=== PATIENT | male | born 1965 | race Caucasian/White ===

== ENCOUNTER → 2016-11-08 | Outpatient (CLI) | payer OTHER ==
[~2016-11-08] MED LIST: ALBUAER2 INH; ATV/1 PO; B-CO1CAP5 PO; CEPH500C2 PO; CHOL100010 PO; CHOL1TAB76 PO; FLUO0.0566 TOP; LEVO100T PO; LEVO88TA22 PO; LOSA1TAB38 PO; OMEG12006 PO; PLMIN90 PO; VNTHFA/IN INH; ZOLP5TAB6 PO; [UNRECOGNIZED DRUG - CODE] PO
[2016-11-08 10:31] LABS: BASO % 1.1 %; BASO ABS # 0.05 K/uL (0-0.2); COMPLETE YES; EOS % 5.5 %; HEMATOCRIT 43.3 % (42-52); IG% 0.2 %; LYMPH % 20.9 %; LYMPH ABS # 0.98 K/uL (1.2-3.4); MEAN CELL VOLUME 87.8 fL (80-100); MEAN CORPUSCULAR HEMOGLOBIN 30.2 pg (25-34); MEAN CORPUSCULAR HGB CONC 34.4 g/dl (32-36); MEAN PLATELET VOLUME 10.8 fL (7.4-10.4); MONO % 6.8 %; NEUT % 65.5 %; PLATELET COUNT 147 K/uL (130-400); RED BLOOD COUNT 4.93 M/uL (4.7-6.1)
[2016-11-08 10:53] LABS: ESTIMATED AVERAGE GLUCOSE 146 mg/dl; HA1C FLAG Normal (Normal)
[2016-11-08 10:54] LABS: ALT/SGPT 41 U/L (12-78); AST/SGOT 24 U/L (15-37); BLOOD UREA NITROGEN 16 mg/dl (7-18); BUN/CREATININE RATIO 14.5 (10-20); CALCIUM 8.2 mg/dl (8.5-10.1); CARBON DIOXIDE 28 mmol/L (21-32); CHLORIDE 106 mmol/L (98-107); GLUCOSE 139 mg/dl (70-99); POTASSIUM 4.2 mmol/L (3.5-5.1); SODIUM 142 mmol/L (136-145)
[2016-11-08 11:06] LABS: ALKALINE PHOSPHATASE 41 U/L (45-117); CHOLESTEROL 156 mg/dl (0-200); CHOLESTEROL/HDL RATIO 4.2; HDL CHOLESTEROL 37 mg/dl; LDL CHOLESTEROL CALCULATED 95 mg/dl; TRIGLYCERIDES 118 mg/dl (0-150); VERY LOW DENSITY LIPOPROT CALC 24 mg/dl
== END | disposition home or self-care (01) ==
LOC: C.LAB 09:11
PROVIDERS: ATTEND Internal Medicine
DX: F43.20 Adjustment disorder, unspecified (principal)

== ENCOUNTER → 2017-01-18 | Outpatient (CLI) | payer OTHER ==
[~2017-01-18] MED LIST changes: -CEPH500C2 PO; -CHOL1TAB76 PO; -FLUO0.0566 TOP; -LEVO100T PO; -VNTHFA/IN INH
[2017-01-18 13:38] LABS: ESTIMATED AVERAGE GLUCOSE 128 mg/dl; HA1C FLAG Normal (Normal)
== END | disposition home or self-care (01) ==
LOC: C.LAB 08:31
PROVIDERS: ATTEND Internal Medicine
DX: Z00.00 Encounter for general adult medical examination without abnormal findings (principal); I10 Essential (primary) hypertension; E03.9 Hypothyroidism, unspecified

== ENCOUNTER 2017-04-08 10:09 | Emergency (ER) | payer OTHER ==
[~2017-04-08] VITALS: Ht 182.9 cm; Wt 129.4 kg
[2017-04-08 10:16] VITALS: TEMP 37; O2SAT 97; Ht 182.9 cm; Wt 129.4 kg
--- NOTE | 2017-04-08 10:59 | DIAGNOSTIC IMAGING REPORT ---
RIGHT ANKLE 3 VIEWS HISTORY: Right ankle pain. COMPARISON: None. FINDINGS: No acute fracture or dislocation. Lateral soft tissue swelling. Small posterior calcaneal spur. Probable old, healed distal fibular fracture. No radiopaque foreign bodies. IMPRESSION: No acute fracture or dislocation within the right ankle. Electronically signed by: Sg Brooks M.D. 04/08/2017 10:58 AM Dictated Date/Time: 04/08/2017 10:57 AM
[2017-04-08] MEDS ORDERED: FLUO0.0566 TOP (11:01)
[2017-04-08] MEDS ORDERED: LEVO100T PO (11:01)
[2017-04-08] MEDS ORDERED: VNTHFA/IN INH (11:01)
[2017-04-08] MEDS ORDERED: CHOL1TAB76 PO (11:01)
[2017-04-08 12:02] VITALS: BP 118/82; PULSE 54
[2017-04-08] MEDS ORDERED: CEPH500C2 PO (12:27)
--- NOTE | 2017-04-08 12:28 | EMERGENCY ROOM VISIT NOTE ---
ED Visit Note First contact with patient: 10:19 CHIEF COMPLAINT: Right ankle pain 2 days HISTORY OF PRESENT ILLNESS: Patient is a 52-year-old white male who presents to the emergency department for evaluation of right lateral ankle pain 2 days. Patient cannot relate any specific injury. He thinks a couple of days ago, he may have tripped or slipped, but denies any specific injury to the ankle. He first noticed his symptoms 2 days ago. 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 The pain was mild on , 2 days ago. Yesterday he was again at work, and on his feet for almost 10 hours. The ankle was sore while he was at work. When he came home from work the ankle markedly swollen. He iced, elevated and took ibuprofen, and the swelling did go down today, although not completely. He complains of pain and swelling in the outside of the right ankle. He is able to bear weight but it is uncomfortable. He reports a remote history of surgery to the medial aspect of this ankle from Dr. Aponte several years ago. He denies any fever or chills. He denies any foot or knee pain. No numbness, tingling or weakness. There is no personal history of gout. He rates his discomfort a 3/10. REVIEW OF SYSTEMS: Review of systems as per HPI. All other systems reviewed were negative. At least 6 systems reviewed.. PMH: Electronic medical records are reviewed and summarized as above/below. See Problem List. SOCIAL HISTORY: Patient lives at home with his family. Employed. He does not smoke. PHYSICAL EXAM: Vital Signs: Reviewed Nurse's notes. MENTAL STATUS: Alert, oriented, and cooperative. Examination of the right ankle show soft tissue swelling localized over the lateral malleolus. He has tenderness over the distal fibula, and slightly over the lateral ankle ligaments. There is very slight increased warmth, and he has a very superficial abrasion over the lateral aspect of the ankle. He does not have any pain over the 5th metatarsal or fibular head. Lisfranc joint is negative. There is no deformity. The foot and toes are warm and well-perfused. Sensation to pain and light touch is intact. EMERGENCY DEPARTMENT COURSE: X-ray of the right ankle reveals no acute fracture or bony abnormality. Patient was reassessed and ankle was reexamined. While awaiting his x-ray results, I do note that the lateral aspect of the ankle may be a little bit more erythematous and warm to the touch. It is not overtly cellulitic however. He does have that abrasion noted. Options were discussed with the patient. He could have a muscular/ligamentous etiology to his symptoms, given the possible injury from earlier this week. Given this he was placed in a gel splint. Possibility of an early cellulitis over the lateral aspect of the ankle was also entertained. His findings are not consistent with gout and I do not suspect septic joint. The patient reports that he cannot manage crutches well. He also believes that he may have a walking boot at home from his prior surgery. He was educated on the worrisome signs or symptoms for which he should return to the emergency department, particularly any worsening signs that could Indicate infection/cellulitis, increased redness, warmth, swelling in or lymphangitic streaking. He was provided a prescription for Keflex that he can start, and if he does start the antibiotic should seek reevaluation within 24 hours. He is otherwise afebrile and well-appearing. He was discharged home with his family in good condition. Medication reconciliation: I attest that I have personally reviewed the patient' s current medication list. Blood pressure screening : Patient was found to have normal blood pressure on screening and does not require follow-up. Differential diagnosis also include foot verses ankle sprain/fracture, contusion , dislocation. RIGHT ANKLE 3 VIEWS HISTORY: Right ankle pain. COMPARISON: None. FINDINGS: No acute fracture or dislocation. Lateral soft tissue swelling. Small posterior calcaneal spur. Probable old, healed distal fibular fracture. No radiopaque foreign bodies. IMPRESSION: No acute fracture or dislocation within the right ankle. 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 Surgical Problems: (1) History of nasal surgery Status: Resolved (2) History of orthopedic surgery Status: Resolved (3) Vasectomy Status Status: Resolved Current/Historical Medications Scheduled B-Complex W/Biotin & Folic Aci (Super B-Complex), 1 CAP PO DAILY Budesonide (Pulmicort Flexhaler), 1 PUFF PO BID Cephalexin Monohydrate (Keflex), 500 MG PO QID Cholecalciferol (D 2000), 2,000 UNITS PO DAILY Fluocinonide (Fluocinonide), 1 APPLN TOP DAILY Levothyroxine Sodium (Synthroid), 100 MCG PO DAILY Losartan Potassium (Cozaar), 100 MG PO DAILY Metformin Hcl (Fortamet), 1,000 MG PO BID [place]-3 Fatty Acids ([place] 3), 2,000 MG PO DAILY Scheduled PRN Albuterol Hfa (Ventolin Hfa), 2-4 PUFFS INH Q6H PRN for SOB/Wheezing Lorazepam (Ativan), 1 MG PO Q6H PRN for Anxiety Zolpidem Tartrate (Zolpidem Tartrate), 1 TAB PO HS PRN for Sleep Allergies Coded Allergies: Penicillins (Unverified Allergy, Unknown, ., 04/08/17) Vital Signs Date Time Temp Pulse Resp B/P (MAP) Pulse Ox O2 Delivery O2 Flow Rate FiO2 04/08/17 12:02 54 17 118/82 04/08/17 10:16 37.0 86 20 142/89 97 Room Air Departure Information Impression Primary Impression: Right ankle pain Prescriptions Cephalexin Monohydrate (KEFLEX) 500 Mg Cap 500 MG PO QID, #40 CAP Prov: Ursula Frankel PA 04/08/17 Referrals Jose L Sanabria M.D. (PCP) Forms HOME CARE DOCUMENTATION FORM, IMPORTANT VISIT INFORMATION Patient Instructions My [facility] Additional Instructions Ibuprofen(Motrin, Advil) may be used for fever or pain. Use 600mg every six hours as needed. Take with food. Avoid using more than 2400mg in a 24 hour period. Do not use 2400mg per day for more than three consecutive days without physician direction. Prolonged inappropriate use can lead to stomach upset or ulcers. This medication can be taken if you need to drive, work, or perform activities which may be dangerous when taking narcotic pain medication. (AND/OR) Acetaminophen(Tylenol) may be used for fever or pain. Use 1000mg every six hours as needed. Avoid using more than 3000mg in a 24 hour period. This medication can be taken if you need to drive, work, or perform activities which may be dangerous when taking narcotic pain medication. Ice compresses for 20 minutes at a time four times daily for 2-3 days. Use the gel splint for your walking boot as instructed. Rest and elevate your injury. Continue current medications. Return to the ER immediately for any fevers, chills, spreading redness or warmth , red streaking traveling up the leg numbness, tingling, severe pain, extreme swelling in the extremity or as needed. Followup with your family doctor or orthopedic surgery if no improvement in 5-7 days. If he starts to notice worsening redness, warmth, red streaking traveling up the leg, start the prescription for Keflex and be reevaluated in 24 hours. Problem Qualifiers Primary Impression: Right ankle pain Chronicity: acute Qualified Codes: M25.571 - Pain in right ankle and joints of right foot
== END 2017-04-08 12:20 | disposition home or self-care (01) ==
LOC: C.EDB 10:10 → C.EDD 12:20
DX: M25.571 Pain in right ankle and joints of right foot (principal); I10 Essential (primary) hypertension; E11.9 Type 2 diabetes mellitus without complications; E78.5 Hyperlipidemia, unspecified; E03.9 Hypothyroidism, unspecified; G47.33 Obstructive sleep apnea (adult) (pediatric); Z87.442 Personal history of urinary calculi; Z79.84 Long term (current) use of oral hypoglycemic drugs; Z79.899 Other long term (current) drug therapy; Z88.0 Allergy status to penicillin

== ENCOUNTER → 2017-05-11 | Outpatient (CLI) | payer OTHER ==
[~2017-05-11] MED LIST changes: -ALBUAER2 INH; +BUPR300T43 PO; +CEPH500C2 PO; -CHOL100010 PO; +CHOL1TAB76 PO; +FLUO0.0566 TOP; +FLUT0.15 NAE; +LEVO100T PO; -LEVO88TA22 PO; +SILD100T PO; +VNTHFA/IN INH
[2017-05-11 11:42] LABS: BASO % 0.9 %; BASO ABS # 0.04 K/uL (0-0.2); EOS % 5.2 %; EOS ABS # 0.24 K/uL (0-0.5); HEMATOCRIT 42.6 % (42-52); HEMOGLOBIN 14.4 g/dL (14.0-18.0); IG# 0.01 K/uL (0.00-0.02); LYMPH % 19.2 %; LYMPH ABS # 0.89 K/uL (1.2-3.4); MEAN CELL VOLUME 88.8 fL (80-100); MEAN CORPUSCULAR HGB CONC 33.8 g/dl (32-36); MEAN PLATELET VOLUME 10.7 fL (7.4-10.4); MONO % 7.1 %; MONO ABS # 0.33 K/uL (0.11-0.59); NEUT % 67.4 %; NEUT ABS # 3.13 K/uL (1.4-6.5); PLATELET COUNT 163 K/uL (130-400); RED CELL DISTRIBUTION WIDTH CV 13.2 % (11.5-14.5); RED CELL DISTRIBUTION WIDTH SD 42.6 fL (36.4-46.3); WHITE BLOOD COUNT 4.64 K/uL (4.8-10.8)
[2017-05-14 02:14] LABS: ANA SCREEN TC 249X POSITIVE (NEGATIVE)
== END | disposition home or self-care (01) ==
LOC: C.LAB 10:00
PROVIDERS: ATTEND Physician Assistant
DX: M79.89 Other specified soft tissue disorders (principal)

== ENCOUNTER → 2017-08-29 | Outpatient (CLI) | payer OTHER ==
[~2017-08-29] MED LIST changes: -BUPR300T43 PO; -FLUT0.15 NAE; -SILD100T PO
[2017-08-29 10:23] LABS: URIC ACID 6.2 mg/dl (2.6-7.2)
[2017-09-02 02:36] LABS: ANA SCREEN TC 249X NEGATIVE (NEGATIVE); ANTI-SS-A <1.0 NEG AI (<1.0 NEG); ANTI-SS-B <1.0 NEG AI (<1.0 NEG); COMPLEMENT C3 TC 44859W 149 MG/DL (90-180); COMPLEMENT C4 TC 44982E 35 MG/DL (16-47)
== END | disposition home or self-care (01) ==
LOC: C.LAB1850 08:49
PROVIDERS: ATTEND Internal Medicine Rheumatology
DX: M10.9 Gout, unspecified (principal); M25.571 Pain in right ankle and joints of right foot; R76.8 Other specified abnormal immunological findings in serum

== ENCOUNTER → 2017-12-25 | Day surgery (SDC) | payer OTHER ==
[2017-12-14 13:08] VITALS: Ht 181.6 cm; Wt 122.7 kg
[~2017-12-25] VITALS: Ht 181.6 cm; Wt 122.7 kg
[~2017-12-25] MED LIST changes: +BUPR300T43 PO; -CEPH500C2 PO; +FLUT0.15 NAE; +LIDOCAINE HCL 2% 2 ML VIAL (20MG/ML) ONE; +MIDAZOLAM HCL 1 MG/ML 2ML VIAL ONE; +ONDANSETRON INJ 2 MG/ML 2 ML VIAL ONE; +PROPOFOL IV EMULSION 10 MG/ML 20 ML VIAL ONE; +SILD100T PO; +SODIUM CHLORIDE 0.9% 500ML 500 ML IV ONE
--- NOTE | 2017-12-25 12:59 | Endo History and Physical ---
History & Physical Date of Service: Dec 25, 2017. Chief Complaint: SCREENING Referring Physician: DR. RADHA PIEDRA History of Present Illness 52 yo CM who presents for screening colonoscopy. Past Surgical History Hx Cardiac Surgery: No Hx Internal Defibrillator: No Hx Pacemaker: No Hx Abdominal Surgery: No Hx of Implantable Prosthesis: No Hx Post-Op Nausea and Vomiting: No Hx Cancer Surgery: No Hx Thoracic Surgery: No Hx Orthopedic: Yes (R ANKLE LIGAMENT REPAIR, L KNEE MENISCUS REPAIR) Hx Urinary Tract Surgery: Yes (LITHOTRIPSY) Family History Colon CA Social History Smoking Status: Never Smoker Hx Substance Use: No Hx Alcohol Use: Yes (SOCIALLY, A COUPLE BEERS) Allergies Coded Allergies: Penicillins (Verified Allergy, Intermediate, HIVES, 12/25/17) Current Medications Reported Home Medications Medications Dose Route/Sig Max Daily Dose Days Date Category Viagra (Sildenafil Citrate) 100 Mg Tab 100 Mg PO PRN 12/14/17 Reported Flonase Allergy Relief (Fluticasone Propionate (Nasal)) 50 Mcg/Act Spr 1 [place] JULIAN HS PRN 12/14/17 Reported Bupropion Hcl Xl (Bupropion Hcl) 300 Mg Tab 1 Tab PO DAILY 12/14/17 Reported Fluocinonide 0.05 % [place] 1 Appln TOP DAILY 04/08/17 Reported D 2000 (Cholecalciferol) 2,000 Unit Tab 2,000 Units PO DAILY 04/08/17 Reported Ventolin Hfa (Albuterol) 200 Puffs/45612 Mcg Aers 2-4 Puffs INH Q6H PRN 04/08/17 Reported Synthroid (Levothyroxine Sodium) 100 Mcg Tab 100 Mcg PO DAILY 04/08/17 Reported Zolpidem Tartrate 5 Mg Tab 1 Tab PO HS PRN 07/20/15 Reported Ativan (Lorazepam) 1 Mg Tab 1 Mg PO Q6H PRN 07/20/15 Reported [place] 3 ([place]-3 Fatty Acids) 1 Cap Cap 2,000 Mg PO DAILY 07/20/15 Reported Super B-Complex (B-Complex W/Biotin & Folic Aci) 1 Cap Cap 1 Cap PO DAILY 07/20/15 Reported Pulmicort Flexhaler (Budesonide) 60 Puffs/5400 Mcg Aero 1 Puff PO BID PRN 07/20/15 Reported Fortamet (Metformin Hcl) 1,000 Mg Tab 1,000 Mg PO BID 07/20/15 Reported Cozaar (Losartan Potassium) 100 Mg Tab 100 Mg PO DAILY 07/20/15 Reported Vital Signs Weight (Kilograms): 122.73 Height (Feet): 5 Height (Inches): 11.5 Date Time Temp Pulse Resp B/P (MAP) Pulse Ox O2 Delivery O2 Flow Rate FiO2 12/25/17 12:28 37.1 79 16 157/89 (111) 98 Room Air Physical Exam General Appearance: WD/WN, no apparent distress Respiratory/Chest: Auscultation: breath sounds normal Cardiovascular: Heart Auscultation: RRR Abdomen: Bowel Sounds: normal Inspection & Palpation: soft, non-distended, no tenderness, guarding & rebound Assessment and Plan Assessment: 52 yo CM who presents for screening colonoscopy. Plan: Proceed with colonoscopy.
--- NOTE | 2017-12-25 13:31 | Discharge Instructions ---
Endoscopy Patient Instructions Date / Procedure(s) Performed Dec 25, 2017. Colonoscopy Allergy Information Coded Allergies: Penicillins (Verified Allergy, Intermediate, HIVES, 12/25/17) Discharge Date / Findings Dec 25, 2017. Colon polyps Internal hemorrhoids Medication Instructions OK to resume all medications today as prescribed Reported Home Medications Medications Dose Route/Sig Max Daily Dose Days Date Category Viagra (Sildenafil Citrate) 100 Mg Tab 100 Mg PO PRN 12/14/17 Reported Flonase Allergy Relief (Fluticasone Propionate (Nasal)) 50 Mcg/Act Spr 1 [place] JULIAN HS PRN 12/14/17 Reported Bupropion Hcl Xl (Bupropion Hcl) 300 Mg Tab 1 Tab PO DAILY 12/14/17 Reported Fluocinonide 0.05 % Celena 1 Appln TOP DAILY 04/08/17 Reported D 2000 (Cholecalciferol) 2,000 Unit Tab 2,000 Units PO DAILY 04/08/17 Reported Ventolin Hfa (Albuterol) 200 Puffs/91116 Mcg Aers 2-4 Puffs INH Q6H PRN 04/08/17 Reported Synthroid (Levothyroxine Sodium) 100 Mcg Tab 100 Mcg PO DAILY 04/08/17 Reported Zolpidem Tartrate 5 Mg Tab 1 Tab PO HS PRN 07/20/15 Reported Ativan (Lorazepam) 1 Mg Tab 1 Mg PO Q6H PRN 07/20/15 Reported [place] 3 ([place]-3 Fatty Acids) 1 Cap Cap 2,000 Mg PO DAILY 07/20/15 Reported Super B-Complex (B-Complex W/Biotin & Folic Aci) 1 Cap Cap 1 Cap PO DAILY 07/20/15 Reported Pulmicort Flexhaler (Budesonide) 60 Puffs/5400 Mcg Aero 1 Puff PO BID PRN 07/20/15 Reported Fortamet (Metformin Hcl) 1,000 Mg Tab 1,000 Mg PO BID 07/20/15 Reported Cozaar (Losartan Potassium) 100 Mg Tab 100 Mg PO DAILY 07/20/15 Reported Provider Instructions Activity Restrictions - No exercising or heavy lifting for 24 hours. - Do not drink alcohol the day of the procedure. - Do not drive a car or operate machinery until the day after the procedure. - Do not make any important decisions or sign important papers in 24 hours after the procedure. Following Day: - Return to full activity which may include returning to work/school. Diet Start your diet with liquids and light foods (jello, soup, juice, toast). Then eat your usual diet if not nauseated. Treatment For Common After Affects For mild abdominal pain, bloating, or excessive gas: - Rest - Eat lightly - Lie on right side Follow-Up Information Follow-up with DR. RADHA PIEDRA as scheduled Anesthesia Information What You Should Know You have had a procedure that required some medicine to reduce anxiety and discomfort. This treatment is called moderate sedation. After receiving the treatment, you may be sleepy, but you will be able to breathe on your own. The effects of the treatment may last for several hours. Follow these instructions along with Activity/Diet recommendations noted above: * Do NOT do anything where dizziness or clumsiness would be dangerous. * Rest quietly at home today, then you can be up and about tomorrow. * Have a responsible person stay with you the rest of today. * You may have had an I.V. today. If so, you may take the dressing off later today. Recommendations Call your doctor if: * Trouble breathing * Continuous vomiting for more than 24 hours * Temperature above 101 degrees * Severe abdominal pain or bloating * Pain not relieved by pain medicine ordered * There is increased drainage or redness from any incision * A large amount of rectal bleeding greater than 2-3 tablespoons. (If you had a polyp/s removed or have hemorrhoids, a small amount of blood - from the rectum is to be expected.) * You have any unanswered questions or concerns. IN THE EVENT OF A SERIOUS EMERGENCY, GO TO THE NEAREST EMERGENCY ROOM Your discharge instructions were prepared by provider Woo Mancera. Patient Instructions Signature Page Milton Restrepo Patient (or Guardian) Signature/Date: I have read and understand the instructions given to me by my caregivers. Caregiver/RN/Doctor Signature/Date: The above-named patient and/or guardian has received patient instructions on this date. + Original Patient Signature Page (only) stays with chart. Please make copy for patient.
--- NOTE | 2017-12-25 13:34 | GI REPORT ---
Patient Name: Milton Restrepo Procedure Date: 12/25/2017 12:44 PM Date of : 1965 Admit Type: Outpatient Age: 52 Gender: Male Attending MD: Woo Mancera DO Procedure: Colonoscopy Providers: Woo Mancera DO Referring MD: Jose L Sanabria Indications: Screening for colorectal malignant neoplasm Medicines: Monitored Anesthesia Care Complications: No immediate complications. Estimated Blood Loss: Estimated blood loss: none. Procedure: Pre-Anesthesia Assessment: - Prior to the procedure, a History and Physical was performed, and patient medications and allergies were reviewed. The patient's tolerance of previous anesthesia was also reviewed. The risks and benefits of the procedure and the sedation options and risks were discussed with the patient. All questions were answered, and informed consent was obtained. Prior Anticoagulants: The patient has taken no previous anticoagulant or antiplatelet agents. ASA Grade Assessment: II - A patient with mild systemic disease. After reviewing the risks and benefits, the patient was deemed in satisfactory condition to undergo the procedure. After I obtained informed consent, the scope was passed under direct vision. Throughout the procedure, the patient's blood pressure, pulse, and oxygen saturations were monitored continuously. The Scope was introduced through the anus and advanced to the terminal ileum. The colonoscopy was performed without difficulty. The patient tolerated the procedure well. The quality of the bowel preparation was good. The terminal ileum, ileocecal valve, appendiceal orifice, and rectum were photographed. Findings: The perianal and digital rectal examinations were normal. Two sessile polyps were found in the sigmoid colon. The polyps were 3 to 5 mm in size. These polyps were removed with a hot snare. Resection and retrieval were complete. Non-bleeding internal hemorrhoids were found during retroflexion. The hemorrhoids were small. Impression: - Two 3 to 5 mm polyps in the sigmoid colon, removed with a hot snare. Resected and retrieved. - Non-bleeding internal hemorrhoids. Recommendation: - Resume previous diet. - Continue present medications. - Repeat colonoscopy for surveillance based on pathology results. - Return to primary care physician as previously scheduled. Woo Mancera DO 12/25/2017 1:33:47 PM This report has been signed electronically. Note Initiated On: 12/25/2017 12:44 PM Number of Addenda: 0 I attest to the content of the Intraoperative Record and orders documented therein, exceptions below {[id number]}
--- NOTE | 2017-12-25 13:57 | Anesthesiology Progress Note ---
Anesthesia Post Op Note Date & Time Dec 25, 2017 at 13:57 Vital Signs Pain Intensity: 0 Vital Signs Past 12 Hours Date Time Temp Pulse Resp B/P (MAP) Pulse Ox O2 Delivery O2 Flow Rate FiO2 12/25/17 13:49 75 20 139/87 (104) 97 Room Air 12/25/17 13:33 37.1 72 20 118/72 (87) 98 Room Air 12/25/17 12:28 37.1 79 16 157/89 (111) 98 Room Air Notes Mental Status: alert / awake / arousable, participated in evaluation Pt Amnestic to Procedure: Yes Nausea / Vomiting: adequately controlled Pain: adequately controlled Airway Patency, RR, SpO2: stable & adequate BP & HR: stable & adequate Hydration State: stable & adequate Anesthetic Complications: no major complications apparent
[2017-12-25 14:03] VITALS: BP 137/88; PULSE 66; O2SAT 100
== END | disposition home or self-care (01) ==
LOC: C.GI 12:06
PROVIDERS: ATTEND Internal Medicine
DX: Z12.11 Encounter for screening for malignant neoplasm of colon (principal); K64.8 Other hemorrhoids; D12.5 Benign neoplasm of sigmoid colon; G47.33 Obstructive sleep apnea (adult) (pediatric); Z88.0 Allergy status to penicillin; Z99.89 Dependence on other enabling machines and devices; Z80.0 Family history of malignant neoplasm of digestive organs